=== PATIENT | male | born 1935 | race Caucasian/White ===

== ENCOUNTER 2016-11-29 07:01 | Day surgery (SDC) | payer MEDICARE, MEDICAID ==
[~2016-11-29] VITALS: Ht 172.7 cm; Wt 70.3 kg
[~2016-11-29 07:01] MED LIST: ADULT ASPIRIN E81 MG PO; DIOVAN40 MG PO; FLOMAX0.4 M1 PO; MELATONIN5 MG PO; NORVASC2.5 MG PO; OMEPRAZOLE20 MG PO
[2016-11-29 09:18] VITALS: BP 128/80
[2016-11-29] MEDS ORDERED: KEFLEX500 M1 PO (15:42)
== END 2016-11-29 09:38 | disposition home or self-care (01) ==
LOC: ENDO 07:01 → ORM 09:30 → ENDO 09:38 → ORM 14:45
PROVIDERS: ATTEND Internal Medicine Gastroenterology
PROC: 0DBL8ZX Excision of Transverse Colon, Via Natural or Artificial Opening Endoscopic, Diagnostic (ICD-10-PCS; principal; 2016-11-29)
PROC: 0DBN8ZX Excision of Sigmoid Colon, Via Natural or Artificial Opening Endoscopic, Diagnostic (ICD-10-PCS; 2016-11-29)
PROC: 0DB98ZX Excision of Duodenum, Via Natural or Artificial Opening Endoscopic, Diagnostic (ICD-10-PCS; 2016-11-29)
PROC: 0DB48ZX Excision of Esophagogastric Junction, Via Natural or Artificial Opening Endoscopic, Diagnostic (ICD-10-PCS; 2016-11-29)
DX: K57.30 Diverticulosis of large intestine without perforation or abscess without bleeding (principal); K59.00 Constipation, unspecified; K21.9 Gastro-esophageal reflux disease without esophagitis; R11.0 Nausea; R14.0 Abdominal distension (gaseous); R19.5 Other fecal abnormalities; K64.4 Residual hemorrhoidal skin tags; K64.8 Other hemorrhoids; D12.3 Benign neoplasm of transverse colon; K63.5 Polyp of colon; K29.70 Gastritis, unspecified, without bleeding; Q40.2 Other specified congenital malformations of stomach; K44.9 Diaphragmatic hernia without obstruction or gangrene; K31.9 Disease of stomach and duodenum, unspecified; K29.80 Duodenitis without bleeding; N40.0 Benign prostatic hyperplasia without lower urinary tract symptoms; I10 Essential (primary) hypertension; Z86.010 Personal history of colon polyps; Z86.73 Personal history of transient ischemic attack (TIA), and cerebral infarction without residual deficits

== ENCOUNTER 2016-11-29 12:52 | Emergency (ER) | payer MEDICARE, MEDICAID ==
[~2016-11-29] VITALS: Ht 172.7 cm; Wt 78.0 kg
[2016-11-29 13:52] LABS: URINE BILIRUBIN - DIPSTICK NEGATIVE (NEGATIVE); URINE BLOOD DIPSTICK TRACE-INTACT (NEGATIVE); URINE GLUCOSE - DIPSTICK NEGATIVE (NEGATIVE); URINE KETONE TRACE mg/dL (NEGATIVE); URINE LEUK ESTERASE NEGATIVE (NEGATIVE); URINE NITRITE - DIPSTICK NEGATIVE (Negative); URINE PH 7.5 (4.5-8.0); URINE PROTEIN - DIPSTICK NEGATIVE (NEG-TRACE); URINE UROBILINOGEN - DIPSTICK 0.2 E.U./dL (0.2)
[2016-11-29 13:53] LABS: URINE CLARITY SLIGHT CLOUDY; URINE COLOR STRAW
[2016-11-29] MEDS ORDERED: KEFLEX500 M1 PO (15:42)
[2016-11-29 16:19] VITALS: BP 156/120
== END 2016-11-29 16:22 | disposition home or self-care (01) ==
LOC: ED 12:52
PROVIDERS: Emergency Medicine
PROC: 0T9B70Z Drainage of Bladder with Drainage Device, Via Natural or Artificial Opening (ICD-10-PCS; principal; 2016-11-29)
DX: N99.89 Other postprocedural complications and disorders of genitourinary system (principal); R33.8 Other retention of urine; I10 Essential (primary) hypertension; E11.9 Type 2 diabetes mellitus without complications; I69.998 Other sequelae following unspecified cerebrovascular disease; R93.5 Abnormal findings on diagnostic imaging of other abdominal regions, including retroperitoneum

== ENCOUNTER 2017-07-30 06:50 | Day surgery (SDC) | payer MEDICARE, MEDICAID ==
[~2017-07-30] VITALS: Ht 172.7 cm; Wt 72.6 kg
[~2017-07-30 06:50] MED LIST changes: +AMLODIPINE BESY10 MG PO; +DIOVAN160 MG PO; +KEFLEX500 M1 PO; +LINZESS72 MCG PO; +TAMSULOSIN0.4 MG PO; +XANAX0.25 MG PO
[2017-07-30 07:30] LABS: BARBITURATES NEGATIVE (NEGATIVE); COCAINE NEGATIVE (NEGATIVE); METHADONE NEGATIVE (NEGATIVE); OXCYCODONE NEGATIVE (NEGATIVE); TETRAHYDROCANNABIONOL POSITIVE (NEGATIVE); TRICYLIC ANTIDEPRESSANTS NEGATIVE (NEGATIVE)
[2017-07-30 07:34] VITALS: BP 170/95
[2017-07-30 07:43] LABS: HEMATOCRIT 49.8 % (39.0-50.0); IMMATURE GRANULOCYTES 0.6 % (0.0-1.0); MEAN CELL VOLUME 94.3 fL CALC (80.0-100.0); MEAN CORPUSCULAR HGB 32.2 pG CALC (26.0-32.0); MEAN CORPUSCULAR HGB CONC 34.1 g/L CALC (32.0-36.0); NEUT# 3.9 thou/uL (1.82-7.42); RED BLOOD COUNT 5.28 mill/uL (4.70-6.10); RED CELL DISTRI WIDTH 13.5 % (11.5-15.5)
[2017-07-30 08:03] LABS: ALBUMIN 4.4 g/dL (3.2-5.0); ALKALINE PHOSPHATASE 118 u/l (38-126); ANION GAP 17 (6-22 (CALC)); BILIRUBIN, TOTAL 0.6 mg/dL (0.0-1.4); BUN 24 mg/dL (8-23); BUN/CREATININE RATIO 20 (12-20 (CALC)); CARBON DIOXIDE 20 mmol/l (22-30); CHLORIDE 111 mmol/l (95-108); CREATININE 1.2 mg/dL (0.7-1.3); GFR 58 ML/MIN (>=60 (CALC)); GFR FOR AFR.AMER. > 60 ML/MIN (>=60 (CALC)); POTASSIUM 3.4 mmol/l (3.5-5.1); SGOT/AST 21 u/l (19-48); SGPT/ALT 28 u/l (11-66); SODIUM 145 mmol/l (137-146); TOTAL PROTEIN 7.7 g/dL (6.3-8.2)
[2017-07-30 08:07] LABS: ACT PARTIAL THROMBO TIME 27.1 SECONDS (20.0-32.5)
== END 2017-07-30 08:15 | disposition home or self-care (01) ==
LOC: ORM 06:50
PROVIDERS: ATTEND Surgery
DX: K40.90 Unilateral inguinal hernia, without obstruction or gangrene, not specified as recurrent (principal); R94.31 Abnormal electrocardiogram [ECG] [EKG]

== ENCOUNTER → 2018-08-11 | Outpatient (REF) | payer MEDICARE, MEDICAID ==
[2018-08-11 11:05] LABS: ALKALINE PHOSPHATASE 113 u/l (38-126); AMYLASE 45 u/l (30-110); ANION GAP 13 (6-22 (CALC)); BILIRUBIN, TOTAL 0.7 mg/dL (0.0-1.4); BUN 24 mg/dL (8-23); BUN/CREATININE RATIO 21 (12-20 (CALC)); CARBON DIOXIDE 26 mmol/l (22-30); CHLORIDE 107 mmol/l (95-108); CREATININE 1.1 mg/dL (0.7-1.3); GFR > 60 ML/MIN (>=60 (CALC)); GFR FOR AFR.AMER. > 60 ML/MIN (>=60 (CALC)); LIPASE 82 u/l (23-300); POTASSIUM 3.9 mmol/l (3.5-5.1); SGOT/AST 21 u/l (19-48); SODIUM 142 mmol/l (137-146); TOTAL PROTEIN 7.2 g/dL (6.3-8.2)
== END | disposition home or self-care (01) ==
LOC: LAB 09:51
PROVIDERS: ATTEND Internal Medicine Gastroenterology
DX: K80.20 Calculus of gallbladder without cholecystitis without obstruction (principal); K86.89 Other specified diseases of pancreas; K31.7 Polyp of stomach and duodenum; Z86.010 Personal history of colon polyps

== ENCOUNTER 2019-02-25 10:19 | Emergency (ER) | payer MEDICARE, MEDICAID ==
[~2019-02-25] VITALS: Ht 172.7 cm; Wt 75.0 kg
[~2019-02-25 10:19] MED LIST changes: +ASPIRIN 81 LOW81 MG PO; +COQ-10100 M1 PO; +DILTIAZEM240 MG PO; +ELIQUIS5 MG PO; +HYDROCHLOROT25 MG PO; +LIPITOR40 M1 PO; +MELATONIN3 M1 PO; +ONDANSETRON4 MG PO; +PRESERVISION PO
[2019-02-25 10:56] LABS: HEMATOCRIT 48.8 % (39.0-50.0); HEMOGLOBIN 16.7 g/dl (14.0-18.0); IMMATURE GRANULOCYTES 0.4 % (0.0-5.0); MEAN CELL VOLUME 95.9 fL CALC (80.0-100.0); MEAN CORPUSCULAR HGB 32.8 pG CALC (26.0-32.0); MEAN CORPUSCULAR HGB CONC 34.2 g/L CALC (32.0-36.0); NEUT# 5.16 thou/uL (1.82-7.42); RED BLOOD COUNT 5.09 mill/uL (4.70-6.10); RED CELL DISTRI WIDTH 13.7 % (11.5-15.5)
[2019-02-25] MEDS ORDERED: XANAX0.25 MG PO (10:59)
[2019-02-25 11:15] LABS: ANION GAP 15 (6-22 (CALC)); BUN 24 mg/dL (8-23); BUN/CREATININE RATIO 24 (12-20 (CALC)); CARBON DIOXIDE 26 mmol/l (22-30); CHLORIDE 106 mmol/l (95-108); GFR > 60 ML/MIN (>=60 (CALC)); GFR FOR AFR.AMER. > 60 ML/MIN (>=60 (CALC)); POTASSIUM 3.3 mmol/l (3.5-5.1); SODIUM 144 mmol/l (137-146)
[2019-02-25] MEDS ORDERED: K-TAB20 MEQ PO (11:34)
[2019-02-25 12:17] VITALS: BP 154/77
== END 2019-02-25 12:17 | disposition home or self-care (01) ==
LOC: ED 10:19
PROVIDERS: Family Medicine
DX: I48.91 Unspecified atrial fibrillation (principal); I10 Essential (primary) hypertension; Z86.73 Personal history of transient ischemic attack (TIA), and cerebral infarction without residual deficits

== ENCOUNTER 2019-10-20 | Emergency (ER) | payer MEDICARE, MEDICAID ==
[~2019-10-20] MED LIST changes: +K-TAB20 MEQ PO
[2019-10-20 14:40] LABS: HEMATOCRIT 49.2 % (39.0-50.0); HEMOGLOBIN 16.6 g/dl (14.0-18.0); IMMATURE GRANULOCYTES 0.5 % (0.0-5.0); MEAN CELL VOLUME 96.3 fL CALC (80.0-100.0); MEAN CORPUSCULAR HGB 32.5 pG CALC (26.0-32.0); MEAN CORPUSCULAR HGB CONC 33.7 g/dL CAL (32.0-36.0); RED BLOOD COUNT 5.11 mill/uL (4.70-6.10); RED CELL DISTRI WIDTH 13.6 % (11.5-15.5)
[2019-10-20 14:43] LABS: ALBUMIN 4.6 g/dL (3.2-5.0); ALKALINE PHOSPHATASE 131 u/l (38-126); ANION GAP 14 (6-22 (CALC)); BILIRUBIN, TOTAL 0.9 mg/dL (0.0-1.4); BUN 19 mg/dL (8-23); BUN/CREATININE RATIO 17 (12-20 (CALC)); CARBON DIOXIDE 22 mmol/l (22-30); CHLORIDE 107 mmol/l (95-108); CREATININE 1.1 mg/dL (0.7-1.3); GFR > 60 ML/MIN (>=60 (CALC)); GFR FOR AFR.AMER. > 60 ML/MIN (>=60 (CALC)); POTASSIUM 4.4 mmol/l (3.5-5.1); SGOT/AST 34 u/l (19-48); SODIUM 139 mmol/l (137-146); TOTAL PROTEIN 8.4 g/dL (6.3-8.2)
[2019-10-20 14:52] LABS: URINE BILIRUBIN - DIPSTICK NEGATIVE (NEGATIVE); URINE BLOOD DIPSTICK MODERATE (NEGATIVE); URINE COLOR YELLOW; URINE GLUCOSE - DIPSTICK NEGATIVE (NEGATIVE); URINE KETONE TRACE mg/dL (NEGATIVE); URINE LEUK ESTERASE NEGATIVE (NEGATIVE); URINE NITRITE - DIPSTICK NEGATIVE (Negative); URINE PH 5.5 (4.5-8.0); URINE PROTEIN - DIPSTICK TRACE mg/dL (NEG-TRACE); URINE SPECIFIC GRAVITY 1.015; URINE UROBILINOGEN - DIPSTICK 0.2 E.U./dL (0.2)
== END 2019-10-20 15:59 | disposition home or self-care (01) ==
PROVIDERS: Emergency Medicine
PROC: 0T9B70Z Drainage of Bladder with Drainage Device, Via Natural or Artificial Opening (ICD-10-PCS; principal; 2019-10-20)
DX: N40.1 Benign prostatic hyperplasia with lower urinary tract symptoms (principal); R33.8 Other retention of urine; I10 Essential (primary) hypertension; I48.91 Unspecified atrial fibrillation; Z95.5 Presence of coronary angioplasty implant and graft; Z86.73 Personal history of transient ischemic attack (TIA), and cerebral infarction without residual deficits

== ENCOUNTER 2019-10-30 | Emergency (ER) | payer MEDICARE, MEDICAID | END 2019-10-30 03:56 | disposition home or self-care (01) | PROC: 0T9B70Z Drainage of Bladder with Drainage Device, Via Natural or Artificial Opening (ICD-10-PCS; principal; 2019-10-30) | DX: R33.9 Retention of urine, unspecified (principal); I10 Essential (primary) hypertension; I48.91 Unspecified atrial fibrillation; Z86.73 Personal history of transient ischemic attack (TIA), and cerebral infarction without residual deficits ==

== ENCOUNTER → 2021-03-02 | Outpatient (REF) | payer MEDICARE, MEDICAID ==
[2021-03-02 10:10] LABS: HEMATOCRIT 44.4 % (39.0-50.0); HEMOGLOBIN 14.3 g/dl (14.0-18.0); MEAN CELL VOLUME 90.8 fL CALC (80.0-100.0); MEAN CORPUSCULAR HGB 29.2 pG CALC (26.0-32.0); MEAN CORPUSCULAR HGB CONC 32.2 g/dL CAL (32.0-36.0); RED BLOOD COUNT 4.89 mill/uL (4.70-6.10); RED CELL DISTRI WIDTH 15.8 % (11.5-15.5)
[2021-03-02 10:28] LABS: BILIRUBIN, TOTAL 0.4 mg/dL (0.0-1.4); CREATININE 1.4 mg/dL (0.7-1.3); POTASSIUM 3.6 mmol/l (3.5-5.1); TOTAL PROTEIN 7.6 g/dL (6.3-8.2)
== END | disposition home or self-care (01) ==
LOC: LAB 09:07
PROVIDERS: ATTEND Nurse Practitioner Family
DX: D64.9 Anemia, unspecified (principal); F51.01 Primary insomnia; I10 Essential (primary) hypertension

== ENCOUNTER 2021-05-02 09:53 | Emergency (ER) | payer MEDICARE, MEDICAID ==
[~2021-05-02] VITALS: Ht 172.7 cm; Wt 70.0 kg
[2021-05-02 11:31] LABS: HEMATOCRIT 41.4 % (39.0-50.0); HEMOGLOBIN 13.5 g/dl (14.0-18.0); IMMATURE GRANULOCYTES 0.3 % (0.0-5.0); MEAN CELL VOLUME 93.2 fL CALC (80.0-100.0); MEAN CORPUSCULAR HGB 30.4 pG CALC (26.0-32.0); MEAN CORPUSCULAR HGB CONC 32.6 g/dL CAL (32.0-36.0); NEUT# 10.63 thou/uL (1.82-7.42); RED BLOOD COUNT 4.44 mill/uL (4.70-6.10); RED CELL DISTRI WIDTH 16.4 % (11.5-15.5)
[2021-05-02 11:38] LABS: URINE BILIRUBIN - DIPSTICK NEGATIVE (NEGATIVE); URINE BLOOD DIPSTICK LARGE (NEGATIVE); URINE COLOR RED; URINE GLUCOSE - DIPSTICK NEGATIVE (NEGATIVE); URINE KETONE NEGATIVE (NEGATIVE); URINE LEUK ESTERASE NEGATIVE (NEGATIVE); URINE PROTEIN - DIPSTICK 30 mg/dL (NEG-TRACE); URINE SPECIFIC GRAVITY 1.015; URINE UROBILINOGEN - DIPSTICK 0.2 E.U./dL (0.2)
[2021-05-02 11:39] LABS: URINE NITRITE - DIPSTICK NEGATIVE (Negative)
[2021-05-02 11:40] LABS: URINE RBC >100 RBC/hpf (0-5); URINE WBC 0-2 WBC/hpf (0-5)
[2021-05-02 11:50] LABS: PROTHROMBIN TIME 10.9 SECONDS (9.0-12.5)
[2021-05-02 11:55] LABS: ALBUMIN 4.1 g/dL (3.2-5.0); ALKALINE PHOSPHATASE 126 u/l (38-126); ANION GAP 13 (6-22 (CALC)); BILIRUBIN, TOTAL 0.8 mg/dL (0.0-1.4); BUN 26 mg/dL (8-23); BUN/CREATININE RATIO 19 (12-20 (CALC)); CARBON DIOXIDE 24 mmol/l (22-30); CHLORIDE 106 mmol/l (95-108); CREATININE 1.3 mg/dL (0.7-1.3); GFR 52 ML/MIN (>=60 (CALC)); GFR FOR AFR.AMER. > 60 ML/MIN (>=60 (CALC)); POTASSIUM 3.6 mmol/l (3.5-5.1); SGOT/AST 36 u/l (19-48); SODIUM 140 mmol/l (137-146); TOTAL PROTEIN 7.8 g/dL (6.3-8.2)
[2021-05-02 12:07] LABS: MYOGLOBIN 220 ng/mL (0 - 121)
[2021-05-02] MEDS ORDERED: TRAZODONE50 MG PO (12:37)
[2021-05-02 13:05] VITALS: BP 157/98
== END 2021-05-02 13:00 | disposition home or self-care (01) ==
LOC: ED 09:53
PROVIDERS: Emergency Medicine
PROC: 0T9B70Z Drainage of Bladder with Drainage Device, Via Natural or Artificial Opening (ICD-10-PCS; principal; 2021-05-02)
DX: R33.8 Other retention of urine (principal); R31.9 Hematuria, unspecified; N35.919 Unspecified urethral stricture, male, unspecified site; I48.91 Unspecified atrial fibrillation; I10 Essential (primary) hypertension; E78.5 Hyperlipidemia, unspecified; K21.9 Gastro-esophageal reflux disease without esophagitis; Z79.01 Long term (current) use of anticoagulants; Z86.73 Personal history of transient ischemic attack (TIA), and cerebral infarction without residual deficits

== ENCOUNTER 2022-01-08 11:54 | Emergency (ER) | payer MEDICARE, MEDICAID ==
[~2022-01-08] VITALS: Ht 172.7 cm; Wt 70.0 kg
[~2022-01-08 11:54] MED LIST changes: +ATENOLOL50 MG PO; +CVS MELATONIN PO; +MULTI VITAMIN1 TAB PO; +PREVAGEN10 MG PO; +STATIN; +TRAZODONE50 MG PO
[2022-01-08 13:10] LABS: URINE BILIRUBIN - DIPSTICK NEGATIVE (NEGATIVE); URINE BLOOD DIPSTICK LARGE (NEGATIVE); URINE GLUCOSE - DIPSTICK NEGATIVE (NEGATIVE); URINE KETONE NEGATIVE (NEGATIVE); URINE LEUK ESTERASE TRACE (NEGATIVE); URINE PH 5.5 (4.5-8.0); URINE PROTEIN - DIPSTICK 100 mg/dL (NEG-TRACE); URINE UROBILINOGEN - DIPSTICK 0.2 E.U./dL (0.2)
[2022-01-08 13:11] LABS: URINE COLOR BROWN; URINE NITRITE - DIPSTICK NEGATIVE (Negative)
[2022-01-08 13:12] LABS: URINE BACTERIA FEW hpf; URINE RBC >100 RBC/hpf (0-5)
[2022-01-08] MEDS ORDERED: KEFLEX500 MG PO (13:16)
[2022-01-08 13:30] VITALS: BP 144/85
== END 2022-01-08 13:53 | disposition home or self-care (01) ==
LOC: ED 11:54
PROVIDERS: Emergency Medicine
PROC: 0T9B70Z Drainage of Bladder with Drainage Device, Via Natural or Artificial Opening (ICD-10-PCS; principal; 2022-01-08)
DX: I10 Essential (primary) hypertension (principal); E78.5 Hyperlipidemia, unspecified; K21.9 Gastro-esophageal reflux disease without esophagitis; R33.9 Retention of urine, unspecified; N39.0 Urinary tract infection, site not specified; B96.4 Proteus (mirabilis) (morganii) as the cause of diseases classified elsewhere

== ENCOUNTER 2022-07-07 11:21 | Emergency (ER) | payer MEDICARE, MEDICAID ==
[~2022-07-07] VITALS: Ht 172.7 cm; Wt 77.3 kg
[~2022-07-07 11:21] MED LIST changes: +KEFLEX500 MG PO
[2022-07-07 12:11] VITALS: BP 162/104
[2022-07-07 12:15] VITALS: BP 172/101
[2022-07-07 12:30] VITALS: BP 166/102
[2022-07-07 12:45] VITALS: BP 170/112
[2022-07-07] MEDS ORDERED: TRAZODONE100 MG PO (13:15)
[2022-07-07 13:26] VITALS: BP 170/112
== END 2022-07-07 13:38 | disposition home or self-care (01) ==
LOC: ED 11:21
PROC: 0T2BX0Z Change Drainage Device in Bladder, External Approach (ICD-10-PCS; principal; 2022-07-07)
DX: T83.031A Leakage of indwelling urethral catheter, initial encounter (principal); I10 Essential (primary) hypertension; K21.9 Gastro-esophageal reflux disease without esophagitis; E78.5 Hyperlipidemia, unspecified; Y84.6 Urinary catheterization as the cause of abnormal reaction of the patient, or of later complication, without mention of misadventure at the time of the procedure; Z86.73 Personal history of transient ischemic attack (TIA), and cerebral infarction without residual deficits

== ENCOUNTER 2022-08-13 07:52 | Day surgery (SDC) | payer MEDICARE, MEDICAID ==
[~2022-08-13] VITALS: Ht 172.7 cm; Wt 68.0 kg
[~2022-08-13 07:52] MED LIST changes: +ATORVASTATIN; +LUNESTA1 M1 PO; +MEDICAL MARIJUANA; +TRAZODONE100 MG PO
[2022-08-13] MEDS ORDERED: PERCOCET 5/321 COMBO PO (08:40)
[2022-08-13 11:15] VITALS: BP 174/107
== END 2022-08-13 10:55 | disposition home or self-care (01) ==
LOC: ORM 07:52
PROVIDERS: ATTEND Surgery
PROC: 0YU50JZ Supplement Right Inguinal Region with Synthetic Substitute, Open Approach (ICD-10-PCS; principal; 2022-08-13)
DX: K40.90 Unilateral inguinal hernia, without obstruction or gangrene, not specified as recurrent (principal); I10 Essential (primary) hypertension; Z95.5 Presence of coronary angioplasty implant and graft; Z95.0 Presence of cardiac pacemaker; Z79.01 Long term (current) use of anticoagulants
CPT/HCPCS: C9290; J0131; J0690

== ENCOUNTER 2022-08-19 10:09 | Emergency (ER) | payer MEDICARE, MEDICAID ==
[~2022-08-19] VITALS: Ht 172.7 cm; Wt 68.0 kg
[~2022-08-19 10:09] MED LIST changes: +PERCOCET 5/321 COMBO PO
[2022-08-19 10:31] VITALS: BP 134/76
== END 2022-08-19 10:59 | disposition home or self-care (01) ==
LOC: ED 10:09
PROC: 0T2BX0Z Change Drainage Device in Bladder, External Approach (ICD-10-PCS; principal; 2022-08-19)
DX: Z46.6 Encounter for fitting and adjustment of urinary device (principal); I10 Essential (primary) hypertension; E78.5 Hyperlipidemia, unspecified; K21.9 Gastro-esophageal reflux disease without esophagitis; Z86.73 Personal history of transient ischemic attack (TIA), and cerebral infarction without residual deficits

== ENCOUNTER 2022-09-17 11:35 | Emergency (ER) | payer MEDICARE, MEDICAID ==
[2022-09-17] VITALS (10 sets, daily range): BP systolic 164–193; BP diastolic 105–123
[~2022-09-17] VITALS: Ht 172.7 cm; Wt 68.1 kg
[2022-09-17 13:08] LABS: URINE BILIRUBIN - DIPSTICK NEGATIVE (NEGATIVE); URINE BLOOD DIPSTICK LARGE (NEGATIVE); URINE GLUCOSE - DIPSTICK NEGATIVE (NEGATIVE); URINE KETONE NEGATIVE (NEGATIVE); URINE PH 6.5 (4.5-8.0); URINE PROTEIN - DIPSTICK 100 mg/dL (NEG-TRACE); URINE UROBILINOGEN - DIPSTICK 0.2 E.U./dL (0.2)
[2022-09-17 13:09] LABS: URINE COLOR RED; URINE LEUK ESTERASE LARGE (NEGATIVE); URINE NITRITE - DIPSTICK NEGATIVE (Negative)
[2022-09-17 13:10] LABS: URINE BACTERIA FEW hpf; URINE RBC TNTC RBC/hpf (0-5)
[2022-09-17] MEDS ORDERED: KEFLEX500 MG PO (13:25)
== END 2022-09-17 13:45 | disposition left against medical advice (07) ==
LOC: ED 11:35
PROVIDERS: Nurse Practitioner
PROC: 0T2BX0Z Change Drainage Device in Bladder, External Approach (ICD-10-PCS; principal; 2022-09-17)
DX: Z46.6 Encounter for fitting and adjustment of urinary device (principal); N39.0 Urinary tract infection, site not specified; N40.1 Benign prostatic hyperplasia with lower urinary tract symptoms; R33.8 Other retention of urine; I10 Essential (primary) hypertension; E78.5 Hyperlipidemia, unspecified; K21.9 Gastro-esophageal reflux disease without esophagitis; B96.4 Proteus (mirabilis) (morganii) as the cause of diseases classified elsewhere; Z86.73 Personal history of transient ischemic attack (TIA), and cerebral infarction without residual deficits; Z53.29 Procedure and treatment not carried out because of patient's decision for other reasons